=== PATIENT | male | born 1960 | race Caucasian/White ===

== ENCOUNTER 2024-04-26 13:04 | Emergency (ER) | payer OTHER ==
[~2024-04-26] VITALS: Ht 167.6 cm; Wt 73.0 kg
[2024-04-26 13:06] VITALS: O2SAT 98
[2024-04-26 14:00] LABS: POTASSIUM 4.2 mEq/L (3.5-5.1)
[2024-04-26 14:03] LABS: BG DEOXYHEMOGLOBIN 1.8 % (0.0-5.0)
[2024-04-26 14:06] LABS: CREATININE 1.5 mg/dL (0.6-1.3)
[2024-04-26 14:08] LABS: HEMATOCRIT. 40.2 % (42.0-52.0); MEAN CORPUSCULAR HGB CONC 32.4 g/dL (31.0-37.0); MEAN CORPUSCULAR VOLUME 86.5 fL (80.0-94.0); MEAN PLATELET VOLUME 8.9 fl (7.4-10.4); PLATELET 280 x1000/uL (130-400); RED BLOOD CELL COUNT 4.65 mill/uL (4.7-6.1); RED CELL DISTRIBUTION WIDTH 14.3 % (11.6-14.6); WHITE BLOOD COUNT 8.8 x1000/uL (4.5-11.0)
[2024-04-26 14:09] LABS: BETA HYDROXYBUTYRATE 4.8 mMol/L (0.0-0.3)
[2024-04-26] MEDS: SODIUM CHLORIDE 0.9% 1,000 ML IV ONE ×2 (14:12)
[2024-04-26 14:13] VITALS: BP 128/58; RESP 16; TEMP 36.9; O2SAT 98
[2024-04-26 14:23] LABS: PROTHROMBIN TIME 10.4 sec (9.6-11.0)
[2024-04-26 14:41] LABS: DIFFERENTIAL COMMENT 1
[2024-04-26] MEDS ORDERED: DEXTROSE 50% WATER 50ML SYRINGE IV PRN (15:15)
[2024-04-26] MEDS ORDERED: INSU100I28 SQ (15:49)
[2024-04-26] MEDS ORDERED: INSU100I33 SQ (15:49)
[2024-04-26] MEDS: INSULIN GLARGINE 100 UNITS/ML SUBCUT ONE (15:58)
[2024-04-26 16:47] VITALS: PULSE 110
[2024-04-26] MEDS: CARVEDILOL 12.5MG TABLET PO ONE (16:47)
[2024-04-26] MEDS: BLOOD SUGAR DIAGNOSTIC STRIP TEST SCH (16:58)
[2024-04-26] MEDS ORDERED: INSULIN LISPRO 100 UNITS/ML SUBCUT SCH (18:20)
[2024-04-27 00:37] LABS: PLATELET ESTIMATE NORMAL
== END 2024-04-26 18:31 | disposition home or self-care (01) ==
LOC: ER 13:42
DX: E11.65 Type 2 diabetes mellitus with hyperglycemia (principal); N17.9 Acute kidney failure, unspecified; E87.8 Other disorders of electrolyte and fluid balance, not elsewhere classified; I10 Essential (primary) hypertension
CPT/HCPCS: 80048; 82010; 82962; 85025; 85610; 36415; 71045; 82375; 82803; 96360; 96361; 96372; 99285; J1815 ×2; J7030; Z7610; 99284; A4606